=== PATIENT | male | born 1995 | race Caucasian/White ===

== ENCOUNTER 2018-05-07 17:18 | Emergency (ER) | payer OTHER ==
[~2018-05-07] VITALS: Ht 180.3 cm; Wt 82.1 kg
[2018-05-07] MEDS ORDERED: POLYMYXIN B/TMP10 ML OPHTHALMIC (18:20)
[2018-05-07 18:25] VITALS: BP 122/83
== END 2018-05-07 18:25 | disposition home or self-care (01) ==
LOC: M.ERS 17:18
DX: T15.01XA Foreign body in cornea, right eye, initial encounter (principal); F17.200 Nicotine dependence, unspecified, uncomplicated; X58.XXXA Exposure to other specified factors, initial encounter; Y93.89 Activity, other specified; Y92.89 Other specified places as the place of occurrence of the external cause; Y99.8 Other external cause status

== ENCOUNTER 2020-11-04 15:20 | Emergency (ER) | payer OTHER ==
[~2020-11-04] VITALS: Ht 175.3 cm; Wt 104.3 kg
[~2020-11-04 15:20] MED LIST: POLYMYXIN B/TMP10 ML OPHTHALMIC
[2020-11-04 15:58] LABS: ABSOLUTE EOSINOPHILS 0.1 thou/uL (0.0-0.7); ABSOLUTE LYMPHOCYTES 1.6 thou/uL (0.8-5.3); ABSOLUTE MONOCYTES 0.6 thou/uL (0.0-1.2); ABSOLUTE NEUTROPHILS 8.1 thou/uL (1.6-8.1); BASOPHILS 0.5 %; EOSINOPHILS 0.8 %; HEMATOCRIT 47.9 % (42.0-52.0); HEMOGLOBIN 16.6 gm/dL (14.0-18.0); LYMPHOCYTES 15.1 %; MCH 30.5 pg (26.0-34.0); MCHC 34.6 g/dL (28.0-37.0); MCV 88.1 fL (80.0-100.0); MONOCYTES 5.6 %; MPV 8.6 fl. (7.2-11.1); NUCLEATED RBCS 0 /100WBC; PLATELET COUNT* 209 thou/uL (150-400); RBC 5.43 mil/uL (4.50-6.00); RDW-CV 13.5 % (10.5-14.5); WBC 10.4 thou/uL (4.0-11.0)
[2020-11-04 16:07] LABS: CALCIUM 8.9 mg/dL (8.5-10.1); CREATININE 0.9 mg/dL (0.6-1.3); POTASSIUM 4.2 mmol/L (3.5-5.1)
[2020-11-04 16:12] LABS: ALBUMIN 4.4 g/dL (3.4-5.0); TOTAL BILIRUBIN 0.2 mg/dL (<0.1-1.0)
[2020-11-04] MEDS ORDERED: AMOXIL 875 MG875 M1 PO (16:21)
[2020-11-04] MEDS ORDERED: HYDROCODON-ACE1 EAC8 PO (16:21)
[2020-11-04] MEDS ORDERED: IBUPROFEN 800800 M1 PO (16:22)
[2020-11-04 16:54] VITALS: BP 145/87
== END 2020-11-04 16:55 | disposition home or self-care (01) ==
LOC: M.ERS 15:20
PROVIDERS: Physician Assistant
DX: K08.89 Other specified disorders of teeth and supporting structures (principal)

== ENCOUNTER 2021-05-28 01:15 | Emergency (ER) | payer OTHER ==
[~2021-05-28] VITALS: Ht 175.3 cm; Wt 90.7 kg
[~2021-05-28 01:15] MED LIST changes: +AMOXIL 875 MG875 M1 PO; +HYDROCODON-ACE1 EAC8 PO; +IBUPROFEN 800800 M1 PO
[2021-05-28 03:57] VITALS: BP 138/87
== END 2021-05-28 03:58 | disposition home or self-care (01) ==
LOC: M.ERS 01:15
DX: S83.92XA Sprain of unspecified site of left knee, initial encounter (principal); S00.93XA Contusion of unspecified part of head, initial encounter; F10.129 Alcohol abuse with intoxication, unspecified; W19.XXXA Unspecified fall, initial encounter; Y93.89 Activity, other specified; Y92.89 Other specified places as the place of occurrence of the external cause; Y99.8 Other external cause status